=== PATIENT | male | born 1965 | race African-American/Black ===

== ENCOUNTER 2024-03-02 13:30 | Inpatient (IN) | payer OTHER ==
[2024-03-02 14:12] VITALS: BMI 28.4
[2024-03-02] MEDS ORDERED: IBUPROFEN 400 MG TABLET (FP) PO PRN (14:37)
[2024-03-02] MEDS ORDERED: NALOXONE HCL 0.4 MG/ML VIAL IM PRN (14:37)
[2024-03-02] MEDS ORDERED: BENZOCAINE/MENTHOL (CHLORASEPTIC ) LOZENGE MM PRN (14:37)
[2024-03-02] MEDS ORDERED: ONDANSETRON *ODT* 4 MG TABLET SL PRN (14:37)
[2024-03-02] MEDS ORDERED: LOPERAMIDE HCL 2 MG CAPSULE PO PRN (14:37)
[2024-03-02] MEDS ORDERED: ACETAMINOPHEN 325 MG TABLET (FP) PO PRN (14:37)
[2024-03-02] MEDS ORDERED: LORazepam 1 MG TABLET PO PRN (14:37)
[2024-03-02] MEDS ORDERED: POLYETHYLENE GLYCOL (HEALTHYLAX) 3350 17 GM PACKET PO PRN (14:37)
[2024-03-02] MEDS ORDERED: BISMUTH SUBSALICYLATE 524 MG/30 ML PO PRN (14:37)
[2024-03-02] MEDS ORDERED: guaiFENesin 600 MG TABLET.ER (FP) PO PRN (14:37)
[2024-03-02] MEDS ORDERED: MAG HYDROX/AL HYDROX/SIMETH 30 ML UNIT-DOSE CUP PO PRN (14:37)
[2024-03-02] MEDS ORDERED: MAGNESIUM HYDROX 2400MG/30ML ORAL SUSPENSION 30 ML CUP PO PRN (14:37)
[2024-03-02] MEDS ORDERED: IBUPROFEN 600 MG TABLET (FP) PO PRN (14:37)
[2024-03-02] MEDS ORDERED: LORazepam 2 MG TABLET PO ONE (14:37)
[2024-03-02] MEDS ORDERED: NALOXONE (NARCAN) HCL 4 MG/0.1 ML SPRAY NS PRN (14:37)
[2024-03-02] MEDS ORDERED: BENZONATATE 200 MG CAPSULE PO PRN (14:37)
[2024-03-02] MEDS ORDERED: DICYCLOMINE HCL 10 MG CAPSULE PO PRN (14:37)
[2024-03-02] MEDS ORDERED: NICOTINE 21 MG/24 HOURS TOPICAL PATCH ONE (15:48)
[2024-03-02] MEDS ORDERED: PRENATAL VITAMINS W/ FOLIC ACID TABLET (FP) PO ONE (15:48)
[2024-03-02] MEDS: PRENATAL VITAMINS W/ FOLIC ACID TABLET (FP) PO SCH (15:54)
[2024-03-02] MEDS: NICOTINE 21 MG/24 HOURS TOPICAL PATCH TD SCH (15:54)
[2024-03-02] MEDS ORDERED: LORazepam 2 MG TABLET ONE (16:57)
[2024-03-02] MEDS: LORazepam 2 MG TABLET PO SCH (16:59)
[2024-03-02] MEDS: THIAMINE 100 MG TABLET PO SCH (22:16)
[2024-03-02] MEDS: MELATONIN 5 MG TABLETS PO SCH (22:16)
[2024-03-03] MEDS ORDERED: NAPROXEN 500 MG TABLET PO PRN (11:13)
[2024-03-03] MEDS: EMTRICITABINE/TENOFOV ALAFENAM (DESCOVY) TABLET PO SCH (11:42)
[2024-03-03 13:59] LABS: HEMATOCRIT 35.1 % (35.4-49); HEMOGLOBIN 11.8 GM/dL (11.7-16.9); MCHC 33.5 g/dl (32.0-35.9); MEAN CELL VOLUME 98.3 fl (80-96); PLATELET COUNT 177 10^3/uL (134-434); RBC 3.57 M/mm3 (4.00-5.60); RDW 12.4 % (11.9-15.9); WHITE BLOOD COUNT 5.1 K/mm3 (4.0-10.0)
[2024-03-03 14:56] LABS: POTASSIUM 3.9 mmol/L (3.5-5.1)
[2024-03-03 15:06] LABS: ALBUMIN 3.2 g/dl (3.4-5.0); BLOOD UREA NITROGEN 22.8 mg/dL (7-18); CALCIUM 8.6 mg/dL (8.5-10.1)
[2024-03-03 15:09] LABS: CREATININE 1.2 mg/dL (0.55-1.3)
[2024-03-03 15:11] LABS: TOT PROT 6.6 g/dl (6.4-8.2)
[2024-03-03] MEDS ORDERED: NAPROXEN 500 MG TABLET PO SCH (22:00)
[2024-03-03] MEDS: METHOCARBAMOL 500 MG TABLET PO PRN (22:25)
[2024-03-04] MEDS: LORazepam 1 MG TABLET PO SCH (05:21)
[2024-03-04] MEDS: LACTULOSE 20 GM/30 ML UDC (FOR ORAL USE ONLY) PO SCH (15:48)
[2024-03-04] MEDS: hydrOXYzine PAMOATE 25 MG CAPSULE (FP) PO PRN (22:47)
[2024-03-05] MEDS ORDERED: LORazepam 0.5 MG TABLET PO PRN
[2024-03-05] MEDS: LORazepam 0.5 MG TABLET PO SCH (05:32)
[2024-03-06] MEDS: LORazepam 0.5 MG TABLET PO ONE (05:51)
[2024-03-06] MEDS: busPIRone HCL 10 MG TABLET (FP) PO SCH (12:33)
[2024-03-06] MEDS: MIRTAZAPINE 15 MG TABLET (FP) PO SCH (22:16)
[2024-03-06] MEDS: PRAZOSIN HCL 1 MG CAPSULE PO SCH (22:16)
[2024-03-08 12:48] VITALS: BP 115/64; PULSE 90; RESP 18; TEMP 98.4
== END 2024-03-08 13:41 | disposition other institution (70) | DRG 774 ==
LOC: YASAS 13:30 → Y3N 16:41
PROVIDERS: ADMIT Allergy & Immunology; ATTEND Surgery
PROC: HZ2ZZZZ Detoxification Services for Substance Abuse Treatment (ICD-10-PCS; principal; 2024-03-02)
DX: F10.230 Alcohol dependence with withdrawal, uncomplicated (principal); F14.20 Cocaine dependence, uncomplicated; F17.210 Nicotine dependence, cigarettes, uncomplicated; F19.280 Other psychoactive substance dependence with psychoactive substance-induced anxiety disorder; F19.24 Other psychoactive substance dependence with psychoactive substance-induced mood disorder; F41.9 Anxiety disorder, unspecified; F32.A Depression, unspecified; F43.10 Post-traumatic stress disorder, unspecified; Z21 Asymptomatic human immunodeficiency virus [HIV] infection status; R74.01 Elevation of levels of liver transaminase levels; Z79.899 Other long term (current) drug therapy
CPT/HCPCS: 36415; 80053; 80305; 80307; 82140; 85027; 86780; 87811; 93005; 93010

== ENCOUNTER 2024-03-08 14:00 | Inpatient (IN) | payer OTHER ==
[2024-03-08] MEDS ORDERED: NALOXONE (NARCAN) HCL 4 MG/0.1 ML SPRAY NS PRN (15:42)
[2024-03-08] MEDS ORDERED: IBUPROFEN 600 MG TABLET (FP) PO PRN (15:42)
[2024-03-08] MEDS ORDERED: hydrOXYzine PAMOATE 25 MG CAPSULE (FP) PO PRN (15:42)
[2024-03-08] MEDS ORDERED: MAGNESIUM HYDROX 2400MG/30ML ORAL SUSPENSION 30 ML CUP PO PRN (15:42)
[2024-03-08] MEDS ORDERED: METHOCARBAMOL 500 MG TABLET PO PRN (15:42)
[2024-03-08] MEDS ORDERED: BENZOCAINE/MENTHOL (CHLORASEPTIC ) LOZENGE MM PRN (15:42)
[2024-03-08] MEDS ORDERED: guaiFENesin 600 MG TABLET.ER (FP) PO PRN (15:42)
[2024-03-08] MEDS ORDERED: BENZONATATE 200 MG CAPSULE PO PRN (15:42)
[2024-03-08] MEDS ORDERED: MAG HYDROX/AL HYDROX/SIMETH 30 ML UNIT-DOSE CUP PO PRN (15:42)
[2024-03-08] MEDS ORDERED: ACETAMINOPHEN 325 MG TABLET (FP) PO PRN (15:42)
[2024-03-08] MEDS ORDERED: LOPERAMIDE HCL 2 MG CAPSULE PO PRN (15:42)
[2024-03-08] MEDS ORDERED: NALOXONE HCL 0.4 MG/ML VIAL IVPUSH PRN (15:42)
[2024-03-08] MEDS ORDERED: IBUPROFEN 400 MG TABLET (FP) PO PRN (15:42)
[2024-03-08] MEDS ORDERED: POLYETHYLENE GLYCOL (HEALTHYLAX) 3350 17 GM PACKET PO PRN (15:42)
[2024-03-08] MEDS: THIAMINE 100 MG TABLET PO SCH (21:09)
[2024-03-08] MEDS: PRAZOSIN HCL 1 MG CAPSULE PO SCH (21:09)
[2024-03-08] MEDS: MIRTAZAPINE 30 MG TABLET PO SCH (21:09)
[2024-03-08] MEDS: NAPROXEN 500 MG TABLET PO SCH (21:10)
[2024-03-08] MEDS: MELATONIN 5 MG TABLETS PO SCH (21:10)
[2024-03-08] MEDS: busPIRone HCL 10 MG TABLET (FP) PO SCH (21:10)
[2024-03-08] MEDS: BACLOFEN 10 MG TABLET (FP) PO SCH (21:10)
[2024-03-09] MEDS: EMTRICITABINE/TENOFOV ALAFENAM (DESCOVY) TABLET PO SCH (09:38)
[2024-03-09] MEDS: PRENATAL VITAMINS W/ FOLIC ACID TABLET (FP) PO SCH (09:38)
[2024-03-19] MEDS: amLODIPine BESYLATE 5 MG TABLET (FP) PO ONE (11:48)
[2024-03-19] MEDS ORDERED: NALOXONE (NYS OPIOID OVERDOSE PROGRAM) 4 MG/0.1 ML SPRAY NS PRN (14:52)
[2024-03-23] MEDS: amLODIPine BESYLATE 5 MG TABLET (FP) PO SCH (14:57)
[2024-03-24 06:45] VITALS: RESP 17
[2024-03-25 06:39] VITALS: BP 139/72; PULSE 82; TEMP 97.1
== END 2024-03-25 10:03 | disposition home or self-care (01) | DRG 772 ==
LOC: YASAS 14:00 → Y5N 14:01
PROVIDERS: ADMIT Psychiatry & Neurology Pain Medicine; ATTEND Psychiatry & Neurology Pain Medicine
PROC: HZ42ZZZ Group Counseling for Substance Abuse Treatment, Cognitive-Behavioral (ICD-10-PCS; principal; 2024-03-08)
DX: F10.20 Alcohol dependence, uncomplicated (principal); F14.20 Cocaine dependence, uncomplicated; F17.210 Nicotine dependence, cigarettes, uncomplicated; F19.280 Other psychoactive substance dependence with psychoactive substance-induced anxiety disorder; F19.282 Other psychoactive substance dependence with psychoactive substance-induced sleep disorder; F32.A Depression, unspecified; F41.9 Anxiety disorder, unspecified; F43.10 Post-traumatic stress disorder, unspecified; I10 Essential (primary) hypertension
CPT/HCPCS: 82962; J0475